=== PATIENT | female | born 1950 | race Caucasian/White ===

== ENCOUNTER 2020-02-06 08:17 | Outpatient (CLI) | payer MEDICARE, OTHER, SELFPAY ==
--- NOTE | 2020-02-06 08:25 | MM_ITS ---
WS: [id number] Bilateral screening digital mammogram, 02/06/2020 Clinical Data: SCREENING Comparison: 01/08/2019, 01/06/2018, 07/22/2016, 03/13/2014, 02/14/2012. Findings: The breast parenchymal pattern shows heterogeneous density No spiculated masses or clustered calcific ations are seen. There are no secondary signs of carcinoma. MM/[id number] Impression: 1. Negative bilateral mammogram unchanged. 2. Recommend annual screening mammograms. BIRADS: 1-Negative FOLLOW UP: 1 Year Follow-up The CAD die drawing checker was used.
== END 2020-02-06 08:18 | disposition home or self-care (01) ==
LOC: RADSHAW 08:22
PROVIDERS: PCP Nurse Practitioner Family; Visit Provider Nurse Practitioner Family
DX: Z12.31 Encounter for screening mammogram for malignant neoplasm of breast (principal)
CPT/HCPCS: 77067

== ENCOUNTER 2021-03-04 11:18 | Outpatient (CLI) | payer MEDICARE, OTHER, SELFPAY ==
--- NOTE | 2021-03-04 11:19 | MM_ITS ---
WS: [id number] BILATERAL SCREENING DIGITAL MAMMOGRAM WITH CAD HISTORY: SCREENING COMPARISON: 02/06/2020 and 01/08/2019 Bilateral CC and MLO views submitted. Computer aided detection analyzed. Breast composition: The breasts are heterogeneously dense, which may obscure small masses. No suspici ous masses, microcalcifications or architectural distortion. Benign calcification in the central LEFT breast. MM/[id number] IMPRESSION: BI-RADS: 2-Benign FOLLOW UP: 1 Year Follow-up
== END 2021-03-04 11:19 | disposition home or self-care (01) ==
LOC: RADSHAW 11:19
PROVIDERS: PCP Nurse Practitioner Family; Visit Provider Nurse Practitioner Family
DX: Z12.31 Encounter for screening mammogram for malignant neoplasm of breast (principal)
CPT/HCPCS: 77067

== ENCOUNTER 2022-03-19 11:51 | Outpatient (CLI) | payer MEDICARE, OTHER, SELFPAY ==
--- NOTE | 2022-03-19 12:04 | MM_ITS ---
WS: [id number] BILATERAL 3D TOMOSYNTHESIS DIGITAL SCREENING MAMMOGRAPHY WITH CAD CLINICAL INFORMATION: SCREENING HISTORY: Screening mammogram. No current complaints. COMPARISON: March 04, 2021 TECHNIQUE: Bilateral CC and MLO views. FINDINGS: The breasts are composed of heterogeneous fibroglandular density tissue, which can limit the detectio n of small underlying mass lesions. A few incidental punctate calcifications. Vascular calcification. No suspicious mass, asymmetry, calcifications, or architectural distortion. No evidence of malignanc y. MM/[place] [id number] IMPRESSION: BI-RADS: 2-Benign FOLLOW UP: 1 Year Follow-up Recommend return to annual screening mammography.
== END 2022-03-19 11:52 | disposition home or self-care (01) ==
LOC: RAD 11:54
PROVIDERS: PCP Nurse Practitioner Family; Visit Provider Nurse Practitioner Family
DX: Z12.31 Encounter for screening mammogram for malignant neoplasm of breast (principal)
CPT/HCPCS: 77063; 77067

== ENCOUNTER 2023-03-28 14:36 | Outpatient (CLI) | payer MEDICARE, OTHER, SELFPAY ==
--- NOTE | 2023-03-28 14:47 | MM_ITS ---
WS: [id number] BILATERAL 3D TOMOSYNTHESIS DIGITAL SCREENING MAMMOGRAM WITH CAD CLINICAL INFORMATION: SCREENING HISTORY: Screening mammogram. No current complaints. COMPARISON: March 19, 2022 TECHNIQUE: Bilateral CC and MLO. FINDINGS: The breast are composed of extremely dense tissue, which can limit the detection of small underlying mass lesions. No suspicious focal mass, asymmetry, calcifications, or architectural distortion. No ev idence of malignancy. A few incidental punctate calcifications. Vascular calcification. Subareolar de nse breast tissue unchanged. MM/[place] [id number] IMPRESSION: BI-RADS: 2-Benign FOLLOW UP: 1 Year Follow-up Recommend return to annual screening mammography.
--- NOTE | 2023-03-28 14:52 | XR_ITS ---
WS: [id number] SCREENING DEXA SCAN [employer] CLINICAL INFORMATION: OSTEOPOROSIS COMPARISON: 2018 FINDINGS: The L1-L4 bone mineral density measures 0.945 g/cm2. This corresponds to a T score score of -2.0 and Z score of -0.2. Left femoral neck bone mineral density measures 0.853 g/cm2. This corresponds to a T score of -1.2 an d Z score of 0.3. Right femoral neck bone mineral density measures 0.887 g/cm2. This corresponds to a T score -1.0of an d Z score of 0.6. Mean femoral neck bone mineral density measures 0.870 g/cm2. This corresponds to a T score of -1.1 an d Z score of 0.4. XR/XR DEXA axial skeleton* [id number] IMPRESSION: Osteopenia lumbar spine. Osteopenia femoral necks. Patient's FRAX calculated 10 year probability for major osteoporotic fracture i s 12.9 % and osteoporotic hip fracture is 2.8%. Bone mineral density lumbar spine has decreased -3.1% since 2018 Bone mineral density in the femoral necks has increased 1.0% since 2018
== END 2023-03-28 14:37 | disposition home or self-care (01) ==
PROVIDERS: PCP Nurse Practitioner Family; Visit Provider Nurse Practitioner Family
DX: Z12.31 Encounter for screening mammogram for malignant neoplasm of breast (principal); M81.0 Age-related osteoporosis without current pathological fracture
CPT/HCPCS: 77063; 77067; 77080

== ENCOUNTER → 2023-10-27 07:43 | Outpatient (BNVA) | payer MEDICARE, OTHER, SELFPAY | PROVIDERS: PCP Nurse Practitioner Family; Referring Provider Nurse Practitioner Family; Visit Provider Internal Medicine | DX: K90.0 Celiac disease (principal); M81.0 Age-related osteoporosis without current pathological fracture; E07.9 Disorder of thyroid, unspecified | CPT/HCPCS: 36415; 80053; 82306; 82310; 83970; 84439; 84443; 99204 ==

== ENCOUNTER → 2024-02-17 11:06 | Outpatient (BNVA) | payer MEDICARE, OTHER, SELFPAY | PROVIDERS: PCP Nurse Practitioner Family; Referring Provider Nurse Practitioner Family; Visit Provider Surgery | DX: K90.0 Celiac disease; R19.5 Other fecal abnormalities; R10.13 Epigastric pain; K21.9 Gastro-esophageal reflux disease without esophagitis | CPT/HCPCS: 99204 ==

== ENCOUNTER 2024-03-28 09:11 | Day surgery (SDC) | payer MEDICARE, OTHER, SELFPAY ==
[2024-03-28 09:35] VITALS: BP 117/69; PULSE 81; RESP 16; TEMP 36.9; O2SAT 98; BMI 26.5
[2024-03-28] MEDS: sodium chloride 0.9% 1,000 ML 30 ML IV (09:41)
--- NOTE | 2024-03-28 10:23 | ANES.PREANE2 ---
Pre-Anesthetic Assessment Height/Weight: Height 1.6 m Weight 68.039 kg Temp Pulse Resp BP Pulse Ox O2 Del Method 98.4 F 81 16 117/69 98 Room Air 03/28/24 09:35 03/28/24 09:35 03/28/24 09:35 03/28/24 09:35 03/28/24 09:35 03/28/24 09:35 Preop Diagnosis: screening, celiac disease, epigastric pain, GERD, + colorectal ca screening Operation Date: 03/28/24 10:30 Proposed Procedures p EGD(Not Applicable) - Nicolás Smith DO s Colonoscopy(Not Applicable) - Nicolás Smith DO Familial anesthetic complications: none Was Beta Joanne taken within 24 hours: N/A Was Clonidine taken within 24 hours: N/A Last intake: Intake Last Liquid Date 03/27/24 Last Liquid Time 22:00 Last Solid Date 03/26/24 Last Solid Time 20:00 Social No alcohol and No tobacco Exam alert, oriented x 3, No clear to auscultation bilaterally and No regular rate & rhythm Airway Submandibular: within normal limits Cervical ROM: within normal limits Mallampati: Class II Dentition: full Pulmonary None reported CV/HEM None reported None reported Hepatic None reported GI Gastroesophageal Reflux Disease epigastric pain Metabolic None reported Musc/skel None reported Neuropsych None reported Anesthetic Plan ASA status: 1 Anesthesia: MAC Medications/Allergies Home Medications Medication Instructions Recorded Confirmed Last Taken Type calcium carbonate 600 mg PO BID 10/27/23 03/26/24 03/27/24 History multivitamin 1 tab PO QAM 10/27/23 03/26/24 03/27/24 History omega-3 fatty acids 1,000 mg 1,000 mg PO BID 10/27/23 03/26/24 03/27/24 History capsule vitamin E (dl, acetate) 180 mg 180 mg PO DAILY 10/27/23 03/26/24 03/27/24 History (400 unit) capsule phenazopyridine 95 mg tablet 95 mg PO BID 03/26/24 03/26/24 03/27/24 History Allergies Allergy/AdvReac Type Severity Reaction Status Date / Time cephalexin Allergy rash Verified 03/28/24 09:32 Sulfa (Sulfonamide Allergy rash Verified 03/28/24 09:32 Antibiotics) Current Medications Generic Name Dose Route Start Last Admin Trade Name Freq PRN Reason Stop Dose Admin Sodium Chloride 1,000 mls @ 30 mls/hr 03/28/24 09:30 03/28/24 09:41 Sodium Chloride 0.9% IV 03/29/24 09:29 30 mls/hr .Q24H SERGEY Administration PFSH Anesthesia Medical History Osteoporosis Celiac disease Family History Father Cancer lung cancer Social History Smoking and tobacco/nicotine status: never used tobacco/nicotine Alcohol intake: never Data Anesthesia Cardiac Studies: No Data to Display
--- NOTE | 2024-03-28 11:10 | PM.HP ---
Providers/Chief Complaint Primary Care Provider: Vivian Gong Chief Complaint: K21.9, K90.0, R10.13, R19.5, Z12.11 History of Present Illness Kiley Watt is a 73 year old female Review of Systems General: Reports: 10 or more systems reviewed and unremarkable except in HPI and below, ROS unobtainable due to endotracheal tube and ROS unobtainable due to medical condition Medications/Allergies Home Medications Medication Instructions Recorded Confirmed Last Taken Type calcium carbonate 600 mg PO BID 10/27/23 03/26/24 03/27/24 History multivitamin 1 tab PO QAM 10/27/23 03/26/24 03/27/24 History omega-3 fatty acids 1,000 mg 1,000 mg PO BID 10/27/23 03/26/24 03/27/24 History capsule vitamin E (dl, acetate) 180 mg 180 mg PO DAILY 10/27/23 03/26/24 03/27/24 History (400 unit) capsule phenazopyridine 95 mg tablet 95 mg PO BID 03/26/24 03/26/24 03/27/24 History Allergies Allergy/AdvReac Type Severity Reaction Status Date / Time cephalexin Allergy rash Verified 03/28/24 09:32 Sulfa (Sulfonamide Allergy rash Verified 03/28/24 09:32 Antibiotics) PFSH Acute PFSH: Medical History (Updated 02/17/24 @ 11:56 by iNcolás Smith DO) Osteoporosis Celiac disease Surgical History (Updated 03/28/24 @ 11:10 by Nicolás Smith DO) Hx of cataract surgery bilater Family History Father Cancer lung cancer Social History Smoking and tobacco/nicotine status: never used tobacco/nicotine Alcohol intake: never Vitals/I&O/Wt Last Vital Signs Temp 98.4 F 03/28/24 09:35 Pulse 81 03/28/24 09:35 Resp 16 03/28/24 09:35 BP 117/69 03/28/24 09:35 Pulse Ox 98 03/28/24 09:35 O2 Del Method Room Air 03/28/24 09:35 Weight last 48 hrs Weight 150 lb A&P Assessment and plan (1) Celiac disease: (2) Positive colorectal cancer screening using Cologuard test: (3) Epigastric pain: (4) GERD (gastroesophageal reflux disease): Plan EGD and colonoscopy Attestations Medical Necessity Statement*: Home Coding Level of Care Code Acute Code for g Fwd Diagnoses Celiac disease K90.0 Positive colorectal cancer screening using Cologuard test R19.5 Epigastric pain R10.13 GERD (gastroesophageal reflux disease) K21.9
[2024-03-28 11:32] VITALS: BP 97/64; PULSE 84; RESP 14; TEMP 36.1; O2SAT 97
[2024-03-28 12:05] VITALS: BP 131/80; PULSE 90; O2SAT 97
--- NOTE | 2024-03-28 12:15 | ANE.PACU2 ---
Inpatient post-anesthesia follow up: Airway intact: Yes Vital signs: Temperature 97.0 F Pulse Rate 90 Respiratory Rate 14 Blood Pressure 131/80 Pulse Oximetry 97 Oxygen Delivery Me thod Room Air Oxygen Flow Rate Fraction of Inspir ed Oxygen Hydration adequate: Yes Nausea and vomiting: No Pain level: 1 Mental status: Baseline
== END 2024-03-28 12:18 | disposition home or self-care (01) ==
PROVIDERS: PCP Nurse Practitioner Family; Visit Provider Surgery
PROC: 0DJ08ZZ Inspection of Upper Intestinal Tract, Via Natural or Artificial Opening Endoscopic (ICD-10-PCS; CPT 43235; principal; 2024-03-28 10:30)
PROC: 0DJD8ZZ Inspection of Lower Intestinal Tract, Via Natural or Artificial Opening Endoscopic (ICD-10-PCS; CPT 45378; 2024-03-28 10:30)
DX: K63.5 Polyp of colon (principal); K64.8 Other hemorrhoids
CPT/HCPCS: 43239; 45385; 88305; J2704; J3490; J7030

== ENCOUNTER 2024-03-29 07:48 | Outpatient (CLI) | payer MEDICARE, OTHER, SELFPAY ==
--- NOTE | 2024-03-29 07:54 | MM_ITS ---
WS: [id number] BILATERAL SCREENING DIGITAL TOMOSYNTHESIS MAMMOGRAM WITH CAD HISTORY: SCREENING COMPARISON: 03/28/2023, 03/19/2022 and 03/04/2021 Bilateral CC and MLO views with tomosynthesis and synthetic mammography submitted. Computer aided det ection analyzed. Breast composition: The breasts are heterogeneously dense, which may obscure small masses. No suspici ous masses, microcalcifications or architectural distortion. Benign calcifications in each breast. MM/[id number] IMPRESSION: BI-RADS: 2-Benign FOLLOW UP: 1 Year Follow-up
== END 2024-03-29 07:49 | disposition home or self-care (01) ==
LOC: RAD 07:49
PROVIDERS: PCP Nurse Practitioner Family; Visit Provider Nurse Practitioner Family
DX: Z12.31 Encounter for screening mammogram for malignant neoplasm of breast (principal)
CPT/HCPCS: 77063; 77067

== ENCOUNTER → 2024-04-20 09:48 | Outpatient (BNVA) | payer MEDICARE, OTHER, SELFPAY | PROVIDERS: PCP Nurse Practitioner Family; Visit Provider Surgery | DX: Z09 Encounter for follow-up examination after completed treatment for conditions other than malignant neoplasm (principal); K21.9 Gastro-esophageal reflux disease without esophagitis; R10.13 Epigastric pain; K29.80 Duodenitis without bleeding; D37.4 Neoplasm of uncertain behavior of colon | CPT/HCPCS: 99214 ==

== ENCOUNTER → 2024-10-26 12:58 | Outpatient (BNVA) | payer MEDICARE, OTHER, SELFPAY | PROVIDERS: PCP Nurse Practitioner Family; Visit Provider Internal Medicine | DX: M81.0 Age-related osteoporosis without current pathological fracture (principal) | CPT/HCPCS: 36415; 80053; 82306 ==

== ENCOUNTER 2025-04-03 12:39 | Outpatient (CLI) | payer MEDICARE, OTHER, SELFPAY ==
--- NOTE | 2025-04-03 12:42 | XR_ITS ---
WS: [id number] SCREENING DEXA SCAN [employer] CLINICAL INFORMATION: osteoporosis COMPARISON: 2022 FINDINGS: The L1-L4 bone mineral density measures 0.988 g/cm2. This corresponds to a T score score of -1.6 and Z score of 0.0. Left femoral neck bone mineral density measures 0.824 g/cm2. This corresponds to a T score of -1.5 and Z score of 0.1. Right femoral neck bone mineral density measures 0.873 g/cm2. This corresponds to a T score -1.1of and Z score of 0.5. Mean femoral neck bone mineral density measures 0.849 g/cm2. This corresponds to a T score of -1.3 and Z score of 0.3. XR/XR DEXA axial skeleton* [id number] IMPRESSION: Osteopenia lumbar spine. Osteopenia femoral necks. Patient's FRAX calculated 10 year probability for major osteoporotic fracture i s 35.7% and osteoporotic hip fracture is 17.5%. Bone mineral density lumbar spine increased 4.6% Bone mineral density femoral necks decreased -2.4%
--- NOTE | 2025-04-03 12:44 | MM_ITS ---
WS: [id number] BILATERAL 3D TOMOSYNTHESIS DIGITAL SCREENING MAMMOGRAPHY WITH CAD CLINICAL INFORMATION: SCREENING HISTORY: Screening mammogram. No current complaints. COMPARISON: 2023 TECHNIQUE: Bilateral CC and MLO views. FINDINGS: The breasts are composed of heterogeneous fibroglandular density tissue, which can limit the detection of small underlying mass lesions. No suspicious mass, asymmetry, calcifications, or architectural distortion. No evidence of malignancy. A few incidental punctate calcifications. Vascular calcifications. MM/MM [facility] tomosynthesis [id number] IMPRESSION: DENSITY: The breasts are heterogeneously dense, which may obscure small masses. BI-RADS: 2 - Benign FOLLOW UP: 1 Year Follow-up Recommend return to annual screening mammography.
== END 2025-04-03 12:40 | disposition home or self-care (01) ==
PROVIDERS: Absent Provider Internal Medicine; PCP Nurse Practitioner Family; Visit Provider Nurse Practitioner Family
DX: Z12.31 Encounter for screening mammogram for malignant neoplasm of breast (principal); M85.88 Other specified disorders of bone density and structure, other site; R92.333 Mammographic heterogeneous density, bilateral breasts; R92.1 Mammographic calcification found on diagnostic imaging of breast
CPT/HCPCS: 77063; 77067; 77080

== ENCOUNTER 2025-04-11 06:48 | Outpatient (CLI) | payer MEDICARE, OTHER, SELFPAY ==
[2025-04-11 08:39] LABS: 25 Hydroxy Vitamin D 75 ng/mL (30-100); Alanine Aminotransferase 16 U/L (0-33); Albumin Level 3.9 g/dL (3.5-5.2); Alkaline Phosphatase 63 U/L (35-105); Anion Gap 15.8 (5-19); Aspartate Amino Transferase 17 U/L (0-32); Blood Urea Nitrogen 14 mg/dL (8-23); Carbon Dioxide 23 mmol/L (22-29); Chloride 106 mmol/L (98-107); Globulin 2.7 g/dL (1.3-4.6); Glucose 93 mg/dL (65-115); Osmolality Calculated 292 mOsm/kg (285-295); Potassium 3.8 mmol/L (3.5-5.1); Sodium 141 mmol/L (136-145); Total Bilirubin 0.4 mg/dL (0.15-1.2); Total Protein 6.6 g/dL (6.6-8.7)
== END 2025-04-11 06:49 | disposition home or self-care (01) ==
PROVIDERS: PCP Nurse Practitioner Family; Visit Provider Internal Medicine
DX: M81.0 Age-related osteoporosis without current pathological fracture (principal)
CPT/HCPCS: 36415; 80053; 82306

== ENCOUNTER → 2025-04-18 10:50 | Outpatient (BNVA) | payer MEDICARE, OTHER, SELFPAY | PROVIDERS: PCP Nurse Practitioner Family; Visit Provider Internal Medicine | DX: M85.80 Other specified disorders of bone density and structure, unspecified site (principal); E55.9 Vitamin D deficiency, unspecified; K90.0 Celiac disease | CPT/HCPCS: 99214 ==